=== PATIENT | female | born 1990 | race Caucasian/White ===

== ENCOUNTER 2023-12-03 13:35 | Emergency (ER) | payer SELFPAY ==
[2023-12-03] VITALS (17 sets, daily range): BP systolic 92–151; BP diastolic 79–114; PULSE 72–115; TEMP 36.7; O2SAT 95–100; BMI 21.0
--- NOTE | 2023-12-03 13:47 | XR_ITS ---
[address] [address] Patient Name: LAZ SANDERS MRN: [id number] date: 1990 Sex: F Assigned Patient Location: ER Current Patient Location: ER Accession/Order Number: [id number] Exam Date: 12/03/2023 13:53 Report Date: 12/03/2023 14:21 At the request of: ERICK JIMENES Procedure: XR shoulder LT min 2V PROCEDURE: XR shoulder LT min 2V COMPARISON: None. HISTORY: shoulder pain FINDINGS: BONES:Anterior glenohumeral dislocation. No definite fracture. Comment fibular joint is intact SOFT TISSUES:Negative. No visible soft tissue swelling. EFFUSION:None visible. OTHER: Negative. XR/XR shoulder LT min 2V IMPRESSION: Anterior shoulder dislocation Electronically authenticated by: AGUSTÍN SHEARER Date: 12/03/2023 14:21
--- NOTE | 2023-12-03 13:50 | ED.UPPEXIN1 ---
HPI HPI - Extremity Injury (Upper) General Chief Complaint: Extremity Injury, Upper Stated Complaint: UPPER LEFT EXTREMITY DISLOCATION Time Seen by Provider: 12/03/23 13:47 Source: patient Mode of arrival: walk-in Limitations: no limitations History of Present Illness HPI narrative: Patient is a 33-year-old female who presents to the emergency department for the evaluation of left shoulder pain. She states she first had a shoulder dislocation at age 16 due to an epileptic seizure. Her orthopedic surgeon told her that she is hyper extensive and she has had multiple shoulder dislocations in the past. She is not concerned for . She states that [place] when she felt pain and a pop in her left shoulder. No fall or direct injury Related Data Home Medications ?Medication ?Instructions ?Recorded ?Confirmed levetiracetam PO 12/03/23 Previous Rx's ?Medication ?Instructions ?Recorded hydrocodone 5 mg-acetaminophen 325 1 tab PO Q6H PRN pain 3 days #12 12/03/23 mg tablet tabs Allergies Allergy/AdvReac Type Severity Reaction Status Date / Time azithromycin [From Zithromax] Allergy Severe Confusion Verified 12/03/23 13:50 Iodinated Contrast Media Allergy Severe Anaphylaxis Verified 12/03/23 13:50 Penicillins Allergy Severe Anaphylaxis Verified 12/03/23 13:50 sulfamethoxazole Allergy Severe Anaphylaxis Verified 12/03/23 13:50 [From Bactrim] trimethoprim [From Bactrim] Allergy Severe Anaphylaxis Verified 12/03/23 13:50 Opioid HPI Opioid Management Most Recent Pain and Opioid Data: Last Pain Scale 10 12/03/23 14:15 Review of Systems ROS Constitutional Denies: fever or chills Ears, nose, mouth, and throat Denies: throat pain or nasal congestion Cardiovascular Denies: chest pain Respiratory Denies: shortness of breath Gastrointestinal Denies: nausea or vomiting Musculoskeletal Reports: extremity pain and joint pain; Denies: back pain or neck pain Integumentary/Breast Denies: rash Hematologic/Lymphatic Denies: easy bruising or easy bleeding Exam Narrative Exam Narrative: Gen.: Awake, alert, in no distress Head: Normocephalic, atraumatic ENT: Moist mucous membranes Respiratory: No respiratory distress Extremities: Limited range of motion at the left shoulder, 2+ left radial pulse with normal behavioral geneticist strength in the left hand. Limited abduction at the left shoulder Psych: Normal mood and affect Neuro: No focal neuro deficit Skin: Warm, dry, intact Constitutional Vital Signs, click to edit/add: Last Vital Signs Temp 98.1 F 12/03/23 13:42 Pulse 72 12/03/23 14:55 Resp 24 H 12/03/23 14:15 BP 131/98 H 12/03/23 14:55 Pulse Ox 100 12/03/23 14:55 Course Vital Signs Vital signs: Vital Signs Temperature 98.1 F 12/03/23 13:42 Pulse Rate 106 H 12/03/23 13:42 Respiratory Rate 18 12/03/23 13:42 Blood Pressure 151/99 H 12/03/23 13:42 Pulse Oximetry 97 12/03/23 13:42 Temperature 98.1 F 12/03/23 13:42 Pulse Rate 72 12/03/23 14:55 Respiratory Rate 24 H 12/03/23 14:15 Blood Pressure 131/98 H 12/03/23 14:55 Pulse Oximetry 100 12/03/23 14:55 MDM - Extremity Injury (Upper) MDM Narrative Medical decision making narrative: X-rays were obtained immediately on arrival. Patient found to have an anterior shoulder dislocation. She was placed in a trauma room with saline lock established, Propofol ordered for the patient with conscious sedation, Versed and etomidate were avoided due to the patient's history of seizure disorder. Conscious sedation paperwork was filled out by Dr. Stone. 1430: Patient consented to the procedure. She was placed on cardiac monitoring with respiratory at the bedside. Her left shoulder was easily manipulated after 120 mg of IV propofol were given. She maintained normal cardiac monitoring and vital signs throughout the procedure. Her shoulder was easily reduced and repeat x-rays were obtained. 1500: Patient reevaluated by Dr. Stone, patient is awake and alert, oriented. She was able to ambulate, take ice chips with no difficulty. She is given a short course of analgesics. She was instructed to follow-up with her orthopedic doctor and she is neurovascularly intact at discharge. Critical care time 35 minutes SHARED APC VISIT, PHYSICIAN ATTESTATION: [id number] I performed a substantive part of the MDM during the patient?s E/M visit. I personally evaluated and examined the patient. I personally made or approved the documented management plan and acknowledge its risk of complications. Medical Records Attestation: I reviewed the patient's medical records. Imaging Data XR shoulder: Attestation: I have reviewed the pertinent imaging results. Radiologist's impression: ITS Impressions Shoulder X-Ray 12/03/23 13:47 IMPRESSION: Anterior shoulder dislocation Electronically authenticated by: AGUSTÍN SHEARER Date: 12/03/2023 14:21 Critical Care Time Critical Care Time Critical Care Time: Yes Total Critical Care Time: 35 Attestation: 35 Minutes of critical care time for conscious sedation and procedure Discharge Plan Discharge Stand Alone Forms: Portal Instructions Chief Complaint: Extremity Injury, Upper Clinical Impression: Anterior dislocation of left shoulder Patient Disposition: Home, Self-Care Time of Disposition Decision: 14:57 Condition: Good Prescriptions / Home Meds: New hydrocodone-acetaminophen 5-325 mg tablet 1 tab PO Q6H PRN (Reason: pain) 3 Days Qty: 12 0RF Rx Instructions: DX: M25.512 No Action levetiracetam [Keppra] PO Print Language: Mauritanian Instructions: Shoulder Dislocation (ED), Procedural Sedation (ED) Additional Instructions: Follow up with your orthopedic doctor Referrals: Physician,Non-Staff, MD [Primary Care Provider] - 1 week
--- NOTE | 2023-12-03 13:59 | XR_ITS ---
[facility] [place] [id number] Patient Name: LAZ SANDERS MRN: [id number] date: 1990 Sex: F Assigned Patient Location: ER Current Patient Location: ED.MAIN Accession/Order Number: [id number] Exam Date: 12/03/2023 14:20 Report Date: 12/03/2023 15:08 At the request of: ERICK JIMENES Procedure: XR shoulder LT min 2V PROCEDURE: XR shoulder LT min 2V COMPARISON: Early the same day HISTORY: shoulder dislocation FINDINGS: BONES:Interval reduction of anterior glenohumeral dislocation. Contour deformity of the lateral humeral head consistent with an impaction injury. No displaced bone fracture. Acromioclavicular joint is intact SOFT TISSUES:Negative. No visible soft tissue swelling. EFFUSION:None visible. OTHER: Negative. XR/XR shoulder LT min 2V IMPRESSION: Reduction of glenohumeral dislocation with likely impaction injury to the lateral humeral head Electronically authenticated by: AGUSTÍN SHEARER Date: 12/03/2023 15:08
[2023-12-03] MEDS: PROPOFOL 200 MG/20 ML VIAL 50 MG IVP (14:13)
== END 2023-12-03 15:18 | disposition home or self-care (01) ==
PROVIDERS: Emergency Provider Emergency Medicine Emergency Medical Services
DX: S43.005A Unspecified dislocation of left shoulder joint, initial encounter (principal); X58.XXXA Exposure to other specified factors, initial encounter
CPT/HCPCS: 23650; 73030; 96374; 99152; 99284; J2704